=== PATIENT | female | born 2000 | race Caucasian/White ===

== ENCOUNTER 2023-02-06 18:10 | Emergency (ER) | payer MEDICAID ==
[~2023-02-06] VITALS: Ht 157.5 cm; Wt 59.0 kg
[2023-02-06 18:45] LABS: *URINE HCG, QUAL POSITIVE (NEGATIVE)
[2023-02-06] MEDS ORDERED: PENICILLIN G BENZATHINE 2.4 MMU/4 ML DISP.SYRIN IM ONE ×2 (18:45→19:08)
[2023-02-06] MEDS ORDERED: MECLIZINE HCL 25 MG TABLET PO ONE (18:45)
[2023-02-06] MEDS ORDERED: IV NORMAL SALINE 1000 ML BAG IV ONE (18:45)
[2023-02-06] MEDS ORDERED: HYDROCODONE/APAP 5-325MG TABLET PO ONE (18:45)
[2023-02-06] MEDS ORDERED: ONDANSETRON 4 MG/2 ML VIAL IV ONE (18:45)
[2023-02-06 18:51] LABS: *BILIRUBIN,URIN NEGATIVE (NEGATIVE); *BLOOD, URINE TRACE (NEGATIVE); *CLARITY,URINE CLEAR (CLEAR); *COLOR,URINE YELLOW (YELLOW); *KETONES,URINE 1+ (NEGATIVE); *UROBILINOGEN,URINE 0.2 E.U./dl (NORMAL); LEUKOCYTE ESTERASE ,URINE 3+ (NEGATIVE); NITRITE, URINE NEGATIVE (NEGATIVE); PH,URINE 6.5 (5.0-8.0); UGLUCOSE NEGATIVE (NEGATIVE)
[2023-02-06] MEDS ORDERED: METOCLOPRAMIDE HCL 10 MG/2 ML VIAL IV ONE (19:00)
[2023-02-06] MEDS ORDERED: diphenhydrAMINE 50 MG/1 ML VIAL IV ONE (19:00)
[2023-02-06 19:02] LABS: BACTERIA,URINE MODERATE /HPF (NONE SEEN); SQUAMOUS EPITHELIAL CELL,UR MANY /HPF (NONE SEEN)
[2023-02-06] MEDS ORDERED: diphenhydrAMINE 50 MG/1 ML VIAL ONE (19:06)
[2023-02-06 19:07] LABS: HEMATOCRIT 37.9 % (31.2-41.9); MEAN CORPUSCULAR HEMOGLOBIN 31.2 uug (24.7-32.8); MEAN CORPUSCULAR VOLUME 92.4 fL (75.5-95.3); PLATELET COUNT (AUTO) 276 K/uL (179-408)
[2023-02-06] MEDS ORDERED: METOCLOPRAMIDE HCL 10 MG/2 ML VIAL ONE (19:07)
[2023-02-06] MEDS ORDERED: HYDROCODONE/APAP 5-325MG TABLET ONE (19:07)
[2023-02-06 19:15] LABS: CARBON DIOXIDE 24 mmol/L (21-32); CHLORIDE 103 mmol/L (98-107); CREATININE 0.5 mg/dL (0.6-1.3); GLUCOSE 108 mg/dL (74-106); POTASSIUM 3.3 mmol/L (3.5-5.1); UREA NITROGEN, BLOOD 8 mg/dL (7-18)
[2023-02-06 19:20] LABS: BILIRUBIN,DIRECT 0.1 mg/dL (0.0-0.2); BILIRUBIN,TOTAL 0.3 mg/dL (0.2-1.0); TOTAL PROTEIN, SERUM 7.3 g/dL (6.4-8.2)
--- NOTE | 2023-02-06 19:30 | NUR ---
Patient taken to CT via gurney accompanied by geeta. Patient in stable condition, no signs of acute distress noted.
[2023-02-06 20:37] LABS: *BILIRUBIN,URIN NEGATIVE (NEGATIVE); *BLOOD, URINE NEGATIVE (NEGATIVE); *CLARITY,URINE CLEAR (CLEAR); *COLOR,URINE YELLOW (YELLOW); *KETONES,URINE NEGATIVE (NEGATIVE); *UROBILINOGEN,URINE 0.2 E.U./dl (NORMAL); LEUKOCYTE ESTERASE ,URINE TRACE (NEGATIVE); NITRITE, URINE NEGATIVE (NEGATIVE); PH,URINE 6.5 (5.0-8.0); UGLUCOSE NEGATIVE (NEGATIVE)
--- NOTE | 2023-02-06 20:44 | NUR ---
Ultrasound at bedside.
[2023-02-06 20:49] LABS: BACTERIA,URINE FEW /HPF (NONE SEEN); RBC,URINE 0-3 /HPF (0-3); SQUAMOUS EPITHELIAL CELL,UR FEW /HPF (NONE SEEN); WBC,URINE 0-3 /HPF (0-3)
[2023-02-06] MEDS ORDERED: ACET500C4 PO (21:13)
[2023-02-06] MEDS ORDERED: METO-295 PO (21:13)
--- NOTE | 2023-02-06 21:34 | NUR ---
Patient discharged to home in stable condition. Written and verbal after care instructions given. Patient verbalizes understanding of instructions. Stressed follow up or return to ER for worsening s/s.
[2023-02-06 21:37] VITALS: BP 115/62
== END 2023-02-06 21:38 | disposition home or self-care (01) ==
LOC: ER 18:10
DX: O26.891 Other specified pregnancy related conditions, first trimester (principal); R51.9 Headache, unspecified; R42 Dizziness and giddiness; R10.2 Pelvic and perineal pain; R11.0 Nausea; R30.0 Dysuria; Z3A.01 Less than 8 weeks gestation of pregnancy
CPT/HCPCS: 99285; 96374; 70450; 76856; 96361; 96375; 80076; 80048; 81001 ×2; 84703; 85025; 84702; 36415; 93005; 96372; J0561; J1200; J2765; J7040; A4663